=== PATIENT | male | born 1965 | race Caucasian/White ===

== ENCOUNTER 2023-09-16 08:16 | Emergency (ER) | payer BC, SELFPAY ==
[2023-09-16 08:29] VITALS: BP 114/65
--- NOTE | 2023-09-16 09:56 | ED.GENMED ---
History of Present Illness
<HUGO Avendano - Last Filed: 09/16/23 17:08>
General
Chief Complaint: Musculo-Skeletal Complaint
Source: patient
Exam Limitations: none
Time Seen by Provider: 09/16/23 09:07
Nursing documentation reviewed up to this point in time: agreed with
Travel History
Have you had any contact with someone who has COVID-19?: No
Do you have any symptoms of coronavirus? Fever > 100 degrees, chills, cough, shortness of breath, sore throat, loss of taste or smell, muscle aches, or headache?: No
History of Present Illness
History of Present Illness:
Patient is a 57-year-old male who presents to the ER for evaluation. Patient complains of bilateral low back pain from his lower ribs down for the past month and a half. He denies any injury. He reports it is not made worse with movement twisting
turning etc. At times he uses a hot bath which seems to improve. He also feels short of breath. Sometimes he feels discomfort with taking a deep breath however he also reports shortness of breath simply with walking or sitting. He does feel pain
that radiates to the left hip. He denies any associated chest pain. He does recently report for the past several weeks/months
he has not had any appetite.
He denies any recent fever or chills.
He does exercise and reports he is able to exercise fine but does feel discomfort after.
Review of Systems
<HUGO Avendano - Last Filed: 09/16/23 17:08>
Review of Systems
Allergies reviewed?: Yes
Other source history: family
All Other Systems: ROS reviewed and negative except as documented in HPI and ROS
Constitutional: Reports fatigue; Denies fever or chills
EENT: Reports no symptoms
Respiratory: Reports trouble breathing
Cardiac: Reports no symptoms
ABD/GI: Reports other (decreased); Denies abdominal pain, nausea or vomiting
: Reports no symptoms
Musculoskeletal: Reports back pain (Bilateral low back pain from bilateral ribs down to hip region.)
Skin: Reports no symptoms
Neurological: Reports no symptoms
Hematologic/Lymphatic: Reports no symptoms
Psychiatric: Reports no symptoms
Phy Exam
<HUGO Avendano - Last Filed: 09/16/23 17:08>
General Physical Exam
General Presentation: no apparent distress
General age: appears stated age
General Skin: warm and dry
General Habitus: normal
General Mental: alert
General Hydration: appears well hydrated
Cardiovascular Exam
Cardiovascular Exam: regular rate/rhythm, no murmur and normal peripheral pulses
Pulmonary Exam
Pulmonary Exam: lungs clear and no respiratory distress
Neurological Exam
Neurological Exam: alert and oriented x3
Musculoskeletal Exam
Musculoskeletal Exam: other (Normal inspection to back no bony midline tenderness no tenderness to palpation pain is not elicited with changing position)
Skin Exam
Skin Exam: normal color and warm/dry
Psychiatric Exam
Psychiatric Exam: normal mood/affect
Course
<HUGO Avendano - Last Filed: 09/16/23 17:08>
Orders/Labs/Results
Orders:
Orders
09/16/23 09:58
IV Insert/Care/Rem.- Treatment PRN
09/16/23 10:09
Complete Blood Count/With Diff Urgent
Comprehensive Metabolic Panel Urgent
DDimer [D-Dimer] Urgent
09/16/23 12:18
Iohexol [Omnipaque] See Protocol PO NOW STA
09/16/23 12:20
CT Abd/pel W Iv And Oral Contr Urgent
Comment:
Reason For Exam: bilateral flank pain loss of appetite
09/16/23 12:21
Diphenhydramine [Benadryl] 50 mg IV NOW STA
Hydrocortisone Sod Succinate [Solu-Cortef] 200 mg IV NOW STA
09/16/23 12:42
Urinalysis Reflex To Culture Urgent
Date Specimen was Collected: 09/16/23
Time Specimen was Collected: 12:41
09/16/23 16:30
Vital Signs- Treatment ONCE
Frequency: Once
Abnormal Lab Results
09/16/23
10:09
MCH 31.5 H pg
(27.0-31.0)
MPV 11.9 H fL
(7.4-10.4)
Glucose 109 H mg/dl
(70-99)
ALT 53 H U/L
(0-50)
09/16/23 10:09
09/16/23 10:09
Vital Signs
Initial and Last Documented VS:
Initial Vital Signs
Temp Pulse Resp BP Pulse Ox
98.2 F 84 16 114/65 98
09/16/23 08:29 09/16/23 08:29 09/16/23 08:29 09/16/23 08:29 09/16/23 08:29
Last Documented Vital Signs
Temp Pulse Resp BP Pulse Ox
98.3 F 97 16 139/85 99
09/16/23 16:33 09/16/23 16:33 09/16/23 16:33 09/16/23 16:33 09/16/23 16:33
Veterinary Radiologist consulted with Physician
Veterinary Radiologist consulted with physician?: Yes
Name of Physician Consulted: Joe
<Aguila Diaz, DO - Last Filed: 09/17/23 14:27>
Orders/Labs/Results
Orders:
Orders
09/16/23 09:58
IV Insert/Care/Rem.- Treatment PRN
09/16/23 10:09
Complete Blood Count/With Diff Urgent
Comprehensive Metabolic Panel Urgent
DDimer [D-Dimer] Urgent
09/16/23 12:18
Iohexol [Omnipaque] See Protocol PO NOW STA
09/16/23 12:20
CT Abd/pel W Iv And Oral Contr Urgent
Comment:
Reason For Exam: bilateral flank pain loss of appetite
09/16/23 12:21
Diphenhydramine [Benadryl] 50 mg IV NOW STA
Hydrocortisone Sod Succinate [Solu-Cortef] 200 mg IV NOW STA
09/16/23 12:42
Urinalysis Reflex To Culture Urgent
Date Specimen was Collected: 09/16/23
Time Specimen was Collected: 12:41
09/16/23 16:30
Vital Signs- Treatment ONCE
Frequency: Once
Abnormal Lab Results
09/16/23
10:09
MCH 31.5 H pg
(27.0-31.0)
MPV 11.9 H fL
(7.4-10.4)
Glucose 109 H mg/dl
(70-99)
ALT 53 H U/L
(0-50)
09/16/23 10:09
09/16/23 10:09
Vital Signs
Initial and Last Documented VS:
Initial Vital Signs
Temp Pulse Resp BP Pulse Ox
98.2 F 84 16 114/65 98
09/16/23 08:29 09/16/23 08:29 09/16/23 08:29 09/16/23 08:29 09/16/23 08:29
Last Documented Vital Signs
Temp Pulse Resp BP Pulse Ox
98.3 F 97 16 139/85 99
09/16/23 16:33 09/16/23 16:33 09/16/23 16:33 09/16/23 16:33 09/16/23 16:33
<HUGO Avendano - Last Filed: 09/16/23 17:08>
MDM/Problems Addressed
Differential Diagnosis Includes:
Not limited to muscular back pain, less likely PE mass
MDM/Problems Addressed:
57-year male presents to the ER for evaluation of low back pain. Patient back pain for the past month. He denies any injury. He does feel at times that hurts to take a deep breath. He denies any radiation of pain. He denies any injury. He
however has other vague complaints including not having an appetite. No actual tenderness on exam normal back inspection no neurological deficits. Patient denies any fevers and is afebrile here with a normal white count stable hemoglobin. Case
reviewed with Dr. Diaz who evaluated patient D-dimer was ordered and negative . Patient with normal chemistries, normal urinalysis. With vague discomfort no injury and other complaints CAT scan was ordered. CAT scan does show 3 separate
lesions which are most consistent with hemangiomas in the there are prominent lymph nodes in the small bowel mesentery left greater than right which are nonspecific could be related to inflammation mesenteric adenitis is also inflammation of the
prostate. I reviewed this CAT scan with patient and and discussed the importance for outpatient follow-up family doctor for continued evaluation of his back pain and reevaluation of CAT scan results. Patient will likely need a possible MRI of
the liver and other imaging to further evaluate abnormalities on the CAT scan. Will discharge with ibuprofen. He feels well enough to go home.
<HUGO Avendano - Last Filed: 09/16/23 17:08>
*Radiology
Radiology exam reviewed: radiology read reviewed
*Pulse Oximetry
Patient hypoxic: no
*Critical Care Note
Total Time (30-74mins, 75-104mins- exclusive of procedures): Not Applicable
ED Attending Note
<HUGO Avendano - Last Filed: 09/16/23 17:08>
-
Portions of this chart may have been created with voice recognition software.� Occasional wrong word or��sound alike� substitutions may have occurred due to the inherent limitations of voice recognition software.
<Aguila Diaz, DO - Last Filed: 09/17/23 14:27>
ED Attending Note
Patient seen and examined by attending physician: Yes
ED Attending Note:
I have reviewed and agree with history and treatment plan by Yaima Neri. My exam revealed
Physical Exam
General: no apparent distress, not acutely ill
Neck: supple. no meningeal signs. normal posterior pharynx
Heart: s1/s2 regular rate and rhythm, no murmur. equal radial
pulses.
HEENT: Pupils equal round reactive to light, EOMI
Lungs: no acute respiratory distress. clear bilaterally
Abdomen: normal bowel sounds. not tender. no CVAT
Neuro: alert and oriented. no focal neurological deficits cranial nerves II through XII intact
Skin: no rash
Psychiatric: well kept. interactive and cooperative
Extremities: no edema. no calf tenderness. negative homans. good distal pulses
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 Doubt malignancy. Patient to follow-up with primary care.
Discharge Plan
Departure
Patient Disposition: Home (Routine Discharge)
Date of Disposition: 09/16/23
Time of Disposition: 16:29
Patient with high blood pressure during this ER visit?: No
Condition: Fair
Discharge Problem:
Back pain
Instructions: Back Pain
Prescriptions:
No Action
cyclobenzaprine 10 MG tablet
10 mg PO TIDPRN PRN (Reason: pain ) Qty: 12 0RF
Referrals:
Sheela Estrada CRNP [Family Provider] -
Activity Restrictions/Additional Instructions:
As discussed you need to follow-up with your family doctor in the next 2 to 3 days for reevaluation of your symptoms and reevaluation of findings on your CAT scan. An MRI of the liver may be indicated to further evaluate several hemangiomas.
Also as discussed you have prominent lymph nodes in the small bowel mesentery this will need close follow-up and reevaluation possible additional imaging . Your prostate was also mildly inflamed. Please with your family doctor the next 2 days for
reevaluation return if any worsening of symptoms. For discomfort of your back you may take ibuprofen 600 mg every hours with food.
Interventions
Interventions:
*Risk Screen - Suicide Last Done: 09/16/23 09:44
*General Assessment Last Done: 09/16/23 10:07
*Neglect/Abuse Screening Last Done: 09/16/23 09:44
ED- Fall Risk Assessment Last Done: 09/16/23 09:44
*ED COVID-19 Vaccine History Last Done: 09/16/23 08:29
*Nursing Disposition Last Done: 09/16/23 16:46
ED-Musculoskeletal Assessment Last Done: 09/16/23 08:55
Discharge Date and Time
Discharge Date/Time: 09/16/23 16:46
[2023-09-16 10:07] VITALS: BMI 23.5
[2023-09-16 10:25] LABS: % Basophils 0.7 % (0-2); % Eosinophils 1.1 % (0-6); % Immature Granulocytes 0.3 % (0-0.5); % Lymphocytes 24.4 % (20.5-51.1); % Monocytes 5.7 % (1.7-9.3); % Neutrophils 67.8 % (42.2-75.2); Absolute Basophils 0.1 10^3/uL (0-0.2); Absolute Eosinophils 0.1 10^3/uL (0-0.7); Absolute Lymphocytes 1.8 10^3/uL (1.2-3.4); Absolute Monocytes 0.4 10^3/uL (0.1-0.6); Hematocrit 45.5 % (39.0-52.0); Hemoglobin 15.6 g/dL (13.0-18.0); Mean Corp Hgb Conc. 34.3 g/dL (33.0-37.0); Mean Corpuscular Hgb 31.5 pg (27.0-31.0); Mean Corpuscular Volume 91.7 fL (80.0-94.0); Mean Platelet Volume 11.9 fL (7.4-10.4); Nucleated Red Blood Cells % 0 % (-); Platelet Count 164 10^3/uL (130-400); Red Blood Cell Count 4.96 10^6/uL (4.70-6.10); Red Cell Dist. Width 11.8 % (11.5-14.5); White Blood Cell Count 7.4 10^3/uL (4.8-10.8)
[2023-09-16 10:35] LABS: ALT (SGPT) 53 U/L (0-50); AST (SGOT) 38 U/L (17-59); Alkaline Phosphatase 74 U/L (38-126); Blood Urea Nitrogen 13 mg/dl (9-20); Calcium 9.4 mg/dl (8.4-10.2); Carbon Dioxide 30 mmol/L (22-30); Chloride 100 mmol/L (98-107); Estimated Creatinine Clearance 81 ml/min; Glucose 109 mg/dl (70-99); Potassium 4.3 mmol/L (3.5-5.1); Sodium 137 mmol/L (135-145); Total Bilirubin 1.3 mg/dl (0.2-1.3); eGFR > 60.00
[2023-09-16 10:38] LABS: D-Dimer < 0.27 ug/mlFEU (0.00-0.50)
[2023-09-16] MEDS: OMNIPAQUE 50 ML PO (12:31)
[2023-09-16] MEDS: SOLU-CORTEF 200 MG IV (12:34)
[2023-09-16 12:51] LABS: Urine Albumin Negative (Neg - Trace); Urine Bilirubin Negative (Negative); Urine Character Clear (Clear); Urine Color Yellow; Urine Glucose Negative (Negative); Urine Ketone Negative (Negative); Urine Leukocyte Negative (Negative); Urine Nitrite Negative (Negative); Urine Occult Blood Negative (Negative); Urine Urobilinogen Negative (Neg - 1+)
[2023-09-16] MEDS: BENADRYL 50 MG IV (14:22)
[2023-09-16 16:33] VITALS: BP 139/85
== END 2023-09-16 16:46 | disposition home or self-care (01) ==
LOC: EMR 08:16
PROVIDERS: Nurse Practitioner; EMERGENCY PHYSICIAN Emergency Medicine; FAMILY PHYSICIAN Nurse Practitioner Adult Health
DX: M54.50 Low back pain, unspecified (principal)
CPT/HCPCS: 99285; 96374; 96375; 74177; 80053; 81003; 85025; 85379; Q9967